=== PATIENT | female | born 1995 | race American Indian/Alaskan Native ===

== ENCOUNTER 2024-08-05 08:36 | Emergency (ER) | payer MEDICAID, SELFPAY ==
[2024-08-05 08:45] VITALS: BP 121/81; PULSE 89; RESP 18; TEMP 36.7; O2SAT 95; BMI 29.8
--- NOTE | 2024-08-05 08:56 | PD.EDADULT ---
ED General RME/HPI General Chief complaint: Back Pain/Injury Stated complaint: LOWER BACK PAIN Time Seen by Provider: 08/05/24 09:01 Arrival date/time: 08/05/24 08:36 CC: Low back pain HPI onset yesterday, patient states he was playing soccer 2 days ago and then the back pain started. This is low back left side greater than right, pointing to the paraspinal region. Last dose of ibuprofen was 400 mg at midnight states he has intermittent radiation of the pain down the left leg. Denies any numbness or tingling in the feet, no saddle saddle anesthesia or bowel or bladder symptoms. Patient states that she is not she is not active in the past month is due for menstrual cycle today. Patient states she is willing to take medicine without confirmation understanding that these medications are detrimental or potential to be detrimental to her . Related Data Previous Rx's ?Medication ?Instructions ?Recorded cyclobenzaprine 10 mg tablet 10 mg PO HS #14 tabs 08/05/24 lidocaine 5 % topical patch 1 patch topical QDAY #15 ea 08/05/24 (Lidoderm) prednisone 20 mg tablet See Taper PO BID 3 days #6 tabs 08/05/24 Allergies Allergy/AdvReac Type Severity Reaction Status Date / Time No Known Allergies Allergy Verified 08/05/24 08:40 Review of Systems Review of Systems Narrative Review of Systems: GEN: No fever, no chills, no weight loss EYES: No discharge, no visual changes, no pain HEENT: No ear pain, no congestion, no sore throat PULM: No shortness of breath, no cough, no congestion CV: No chest pain, no dyspnea on exertion, no palpitations GI: No nausea, no vomiting, no diarrhea, no pain, no constipation : No frequency, no urgency, no dysuria MUSC/SKEL: No joint pain, + back pain SKIN: No rash PSYCH: No hallucinations, no depression HEME/LYMPH: No easy bleeding or bruising tendencies NEURO: No weakness, no headache Past Medical History Social History SMOKING STATUS: Never smoker ED Exam Narrative Physical exam: [General: Obese in mild discomfort but not in any acute distress Head normocephalic HEENT: Within acceptable limits Neck is supple nontender Chest equal chest rise nontender to palpation Respiratory: Clear to auscultation no wheezes crackles or rubs CV: Rate rhythm is regular no murmurs rubs or clicks Abdomen is distended secondary to body habitus soft nontender no masses positive bowel sounds all 4 quadrants Back: Lumbar left paraspinal tenderness with palpation no spinous process tenderness palpation no thoracic or cervical pain with palpation. Skin: Intact no petechiae rash induration ulceration or crepitus Extremities: Moving all extremity against resistance cap refill less than 2 seconds neurosensory intact Neuro: Awake alert oriented x3 Glascow coma 15 no focal deficits] Course Quality Measures none Orders Category Date Time Status CYCLObenzaPRINE [Flexeril] Med 08/05/24 08:54 Discontinued 5 mg PO X1 ONE Ketorolac Inj [Toradol Inj] Med 08/05/24 08:54 Discontinued 30 mg IM X1 ONE Vital Signs Vital signs: Vital Signs Temperature 98.0 F 08/05/24 08:45 Pulse Rate 89 08/05/24 08:45 Respiratory Rate 18 08/05/24 08:45 Blood Pressure 121/81 08/05/24 08:45 Pulse Oximetry (%) 95 08/05/24 08:45 Oxygen Delivery Method Room Air 08/05/24 08:45 [facility] Patient data External records reviewed:: [facility] previous records Clinical information provided by:: patient Social determinants that could affect healthcare access:: none Patient has the following chronic illnesses:: None How is presenting disease/condition affected by chronic disease/condition?: uneffected by Evaluation data The following diagnostics were reviewed and interpreted by me:: other (specify) (None) Lab and/or radiology exams considered but not ordered:: None Interpretation Summary: Low back strain Medications Medications considered but not ordered:: None Medication administrations:: Medication Administration History Discontinued Medications Cyclobenzaprine HCl (Cyclobenzaprine 5 Mg Tablet) 5 mg PO X1 ONE Stop: 08/05/24 08:55 Last Admin: 08/05/24 09:14 Dose: 5 mg Documented By: OA Ketorolac Tromethamine (Ketorolac Inj 60 Mg/2 Ml Vial) 30 mg IM X1 ONE Stop: 08/05/24 08:55 Last Admin: 08/05/24 09:14 Dose: 30 mg Documented By: OA None Consultations Consultation(s) initiated? (list below): No Diagnosis Differential Diagnosis ED Complaint MDM: Low back strain low back fracture low back myalgia Most likely diagnosis given after review of the tests above:: Low back strain Admission Indicated Admission indicated?: not indicated Explain why admission is indicated or not indicated:: Stable for outpatient follow-up Admission Request Was there a request for admission?: No Disposition Plan Disposition Plan: Discharge Discharge Attestation Discharge Attestation: The patient and all family members were given an opportunity to ask questions and understood the discharge instructions. Discharge instructions specifically effects, indications for sooner follow up or return to the emergency department, and the expected course of current diagnosis. Patient condition: Stable Medical Decision Making Differential Diagnosis Differential Diagnosis: Low back strain low back fracture low back myalgia Discharge Plan Plan Patient Disposition: HOME (Self Care) Patient condition on transfer: Stable Prescriptions/Referrals Prescriptions/Med Rec: New cyclobenzaprine 10 mg tablet 10 mg PO HS Qty: 14 0RF lidocaine [Lidoderm] 5 % adhesive patch,medicated 1 patch topical QDAY Qty: 15 0RF Rx Instructions: leave on most painful area for up to 12 hrs prednisone 20 mg tablet See Taper PO BID 3 Days Qty: 6 0RF Taper: Prednisone Taper 20 mg DAILY for 2 Days and 0 Hour 10 mg DAILY for 2 Days and 0 Hour 5 mg DAILY for 7 Days and 0 Hour Problem List Clinical Impression: Low back strain Patient/Caregiver Discharge Instructions Education Materials: ED Back Sprain/Strain Additional Instructions: Take the medications provided, allow this time to heal with his worsening of symptoms return the emergency room medially for further evaluation. Print Language: Algerian Stand Alone Forms: Prema Award Info., Patient Portal Info Letter MUKESH/SMITA Supervising Physician MUKESH/SMITA Supervising Physician: Codey Nelson ENP
[2024-08-05] MEDS: KETOROLAC INJ 60 MG/2 ML VIAL 30 MG IM (09:14)
[2024-08-05] MEDS: CYCLObenzaPRINE 5 MG TABLET PO (09:14)
== END 2024-08-05 09:19 | disposition home or self-care (01) ==
LOC: SERX 09:31
PROVIDERS: Emergency Provider Emergency Medicine
DX: S39.012A Strain of muscle, fascia and tendon of lower back, initial encounter (principal); X58.XXXA Exposure to other specified factors, initial encounter; Y93.66 Activity, soccer
CPT/HCPCS: 96372; 99283; J1885; A9270

== ENCOUNTER → 2024-08-09 | Outpatient (CLI) | payer MEDICAID, SELFPAY ==
--- NOTE | 2024-08-09 | XR_ITS ---
Examination: Lumbar spine 3 views Technique one AP lateral coned lateral lower lumbar spine 3 views Exam date 9: August 09, 2024 1359 hours INDICATIONS: Low back pain beginning 2 months ago FINDINGS: Satisfactory alignment lumbar vertebral bodies Moderate disc narrowing L4-L5, L5-S1 No lumbar fracture IMPRESSION: Moderate disc narrowing L4-L5, L5-S1
== END | disposition home or self-care (01) ==
PROVIDERS: PCP Nurse Practitioner Family; Referring Provider Nurse Practitioner Family; Visit Provider Nurse Practitioner Family
DX: M48.061 Spinal stenosis, lumbar region without neurogenic claudication (principal); M48.07 Spinal stenosis, lumbosacral region
CPT/HCPCS: 72100